=== PATIENT | male | born 1980 | race Two or more races ===

== ENCOUNTER 2019-10-05 19:50 | Emergency (ER) | payer MEDICAID ==
[~2019-10-05] VITALS: Ht 177.8 cm; Wt 72.6 kg
[2019-10-05 19:50] VITALS: BP 131/76
== END 2019-10-05 20:58 | disposition home or self-care (01) ==
LOC: ER 19:50
DX: F41.9 Anxiety disorder, unspecified (principal)

== ENCOUNTER 2019-11-11 13:54 | Emergency (ER) | payer MEDICAID ==
[~2019-11-11] VITALS: Ht 170.2 cm; Wt 72.6 kg
--- NOTE | 2019-11-11 14:09 | NUR ---
Note [facility] in EDM - 11/11/19 at 1451 by KIAN bibs to er bed 12. aaox4. not in resp distress. ambulatory. came in for dizzyness x 3 episode today descrided as spinning for 5 sec and goes back to normal. pt also is complaining of r ear pain x 3 days extending to r face. awaiting md for eval.
--- NOTE | 2019-11-11 14:09 | NUR ---
bibs to er bed 12. aaox4. not in resp distress. ambulatory. came in for dizzyness x 3 episode today descrided as spinning for 5 sec and goes back to normal. pt also is complaining of r ear pain x 3 days extending to r face. he also stated that he have ringing in his ear as well. awaiting md for eval.
[2019-11-11] MEDS ORDERED: IBUPROFEN 600 MG TABLET PO ONE ×2 (14:41→15:00)
[2019-11-11] MEDS ORDERED: OXYMETAZOLINE HCL NASAL SPRAY 30 ML BOTTLE NS ONE ×2 (14:41→15:00)
[2019-11-11] MEDS ORDERED: MECLIZINE HCL 25 MG TABLET ONE (14:41)
[2019-11-11] MEDS ORDERED: MECLIZINE HCL 25 MG TABLET PO ONE (15:00)
[2019-11-11 15:38] VITALS: BP 126/77
--- NOTE | 2019-11-11 15:38 | NUR ---
Patient discharged to home in stable condition. Written and verbal after care instructions given. Patient verbalizes understanding of instruction. Pt ambulatory with a steady gait
== END 2019-11-11 15:30 | disposition home or self-care (01) ==
LOC: ER 13:56
DX: R42 Dizziness and giddiness (principal); H93.11 Tinnitus, right ear; H92.01 Otalgia, right ear; E78.5 Hyperlipidemia, unspecified; Z88.0 Allergy status to penicillin
CPT/HCPCS: 99284; J8597